=== PATIENT | female | born 1960 | race Caucasian/White ===

== ENCOUNTER 2018-05-28 14:52 | Emergency (ER) | payer BC ==
[2018-05-28 15:05] VITALS: BP 123/77
--- NOTE | 2018-05-28 15:30 | UC ---
Lower Extremity/Ankle HPI - HPI Summary HPI Summary: 58 yo female twisted right ankle 3 weeks ago while hiking in [place]. She used crutches for three days them continued to hike and sightsee had marked bruising and swelling which has since resolve has had persistent pain for the past 5 days has been using a friends CAM boot - History of Current Complaint Chief Complaint: UCLowerExtremity Stated Complaint: ANKLE INJURY Time Seen by Provider: 05/28/18 15:03 Hx Obtained From: Patient Onset/Duration: Sudden Onset, Lasting Weeks - 3 Severity Initially: Moderate Severity Currently: Moderate Pain Intensity: 5 Pain Scale Used: 0-10 Numeric Aggravating Factor(s): Standing, Ambulation Alleviating Factor(s): Rest Able to Bear Weight: Yes - Allergies/Home Medications Allergies/Adverse Reactions: Allergies Allergy/AdvReac Type Severity Reaction Status Date / Time No Known Allergies Allergy Verified 05/28/18 15:05 PMH/Surg Hx/FS Hx/Imm Hx Previously Healthy: Yes Other History Of: Negative For: Anticoagulant Therapy - Surgical History Surgical History: Yes Surgery Procedure, Year, and Place: Uterine fibroidectomy 1993, heel spur removed , sinus surgery 1999, lap rosanna fundoplication 10/26/12 [facility]. 2012 cervical spine fusion, 2016 gastric bypass - Family History Known Family History: Positive: Hypertension - Social History Alcohol Use: Rare Alcohol Amount: 1-2 PER WEEK Substance Use Type: None Smoking Status (MU): Never Smoked Tobacco - Immunization History Most Recent Influenza Vaccination: 2011 Most Recent Tetanus Shot: 2010 Most Recent Pneumonia Vaccination: HAS NOT HAD Review of Systems Constitutional: Negative Skin: Negative Eyes: Negative ENT: Negative Respiratory: Negative Cardiovascular: Negative Gastrointestinal: Negative Genitourinary: Negative Motor: Negative Neurovascular: Negative Musculoskeletal: Arthralgia Neurological: Negative Psychological: Negative Is Patient Immunocompromised?: No All Other Systems Reviewed And Are Negative: Yes Physical Exam Triage Information Reviewed: Yes Appearance: Well-Appearing, No Pain Distress, Well-Nourished Vital Signs: Initial Vital Signs Temp 99.2 F 05/28/18 15:01 Pulse 74 05/28/18 15:01 Resp 18 05/28/18 15:01 BP 123/77 05/28/18 15:01 Pulse Ox 97 05/28/18 15:01 Eyes: Positive: Conjunctiva Clear ENT: Positive: Normal ENT inspection Neck: Positive: Supple, Nontender Respiratory: Positive: Lungs clear, Normal breath sounds, No respiratory distress Cardiovascular: Positive: RRR, No Murmur Musculoskeletal: Positive: ROM Limited @ - right ankle, Edema @ - right LM- tender here too Neurological: Positive: Alert Psychological Exam: Normal Skin Exam: Normal Diagnostics - Radiology No standard instances Xray Interpretation: Positive (See Comments) - Mata type B fracture lateral malleolus with only minimal displacement Radiology Interpretation Completed By: Radiologist Lower Extremity Course/Dx - Differential Dx/Diagnosis Provider Diagnoses: distal right fibular fracture with minimal displacement Discharge - Sign-Out/Discharge Documenting (check all that apply): Discharge/Admit/Transfer - Discharge Plan Condition: Stable Disposition: HOME Patient Education Materials: Ankle Fracture (ED) Referrals: José Miguel Correa MD [Medical Doctor] - As Soon As Possible (call and make appt for next week) Additional Instructions: wear your CAM boot crutches with non wt bearing - Billing Disposition and Condition Condition: STABLE Disposition: Home
--- NOTE | 2018-05-28 15:36 | RAD ---
Indication: Persistent RIGHT ankle pain following injury 3 weeks ago. Comparison: April 28, 2014 Technique: AP, mortise, and lateral views RIGHT ankle. Report: Spiral fracture of the distal metaphysis of the fibula terminating inferiorly at the level of the ankle mortise with one cortex width lateral displacement. Negative for additional fracture. The ankle mortise remains grossly congruent. Talocrural joint effusion. Soft tissue swelling most prominent over the lateral malleolus. 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 Small plantar fascia origin bone spur. IMPRESSION: #. Mata type B fracture lateral malleolus with only minimal displacement.
== END 2018-05-28 15:40 | disposition home or self-care (01) ==
LOC: UCEAST 14:52
DX: S82.831A Other fracture of upper and lower end of right fibula, initial encounter for closed fracture (principal); X50.1XXA Overexertion from prolonged static or awkward postures, initial encounter; Y93.01 Activity, walking, marching and hiking; Y92.9 Unspecified place or not applicable
CPT/HCPCS: 99212; G0463